=== PATIENT | male | born 1995 | race American Indian/Alaskan Native ===

== ENCOUNTER 2016-11-12 10:30 | Day surgery (SDC) | payer OTHER ==
[~2016-11-12 10:30] MED LIST: ANCEF/STERILE WATER 2 GM/20 ML 2 GM/20 ML SYRINGE IV NR
[2016-11-12] MEDS ORDERED: MARCAINE 0.5% 30 ML INFILTRATI ONE ×2 (13:02→14:33)
[2016-11-12] MEDS ORDERED: DECADRON ONE ×3 (13:03→15:18)
--- NOTE | 2016-11-12 13:09 | Anesthesia Day of Surgery ---
Anesthesia Day of Surgery - Day of Surgery Patient Examined: Yes Patient H&P Reviewed: Yes Patient is NPO: Yes Beta Blockers: No Pulmonary Clearance: No
--- NOTE | 2016-11-12 13:09 | Anesthesia Consultation ---
Anesthesia Consult and Med Hx - Airway ROM Head & Neck: Inadequate Mallampati Class: Class II Intubation Access Assessment: Possibly Difficult - Pulmonary Exam CTA: Yes - Cardiac Exam Cardiac Exam: RRR - Pre-Operative Health Status ASA Pre-Surgery Classification: ASA3 Proposed Anesthetic Plan: General (arthrograposis s/p multiple sx) - Central Nervous System Hx Psychiatric Problems: No - Other Systems Hx Alcohol Use: No Hx Substance Use: No Hx Cancer: No
[2016-11-12] MEDS ORDERED: SUBLIMAZE ONE (13:22)
[2016-11-12] MEDS ORDERED: XYLOCAINE 1% 20 mL ONE (13:23)
[2016-11-12] MEDS ORDERED: DILAUDID ONE (13:42)
[2016-11-12] MEDS ORDERED: DIPRIVAN 10 MG/ML IV ONE ×2 (13:42→15:49)
[2016-11-12] MEDS ORDERED: XYLOCAINE MPF 2% ONE (13:45)
[2016-11-12] MEDS ORDERED: ZOFRAN ONE ×2 (13:46→15:18)
[2016-11-12] MEDS ORDERED: PEPCID PO NR (14:00)
[2016-11-12] MEDS ORDERED: VERSED IV NR (14:00)
[2016-11-12] MEDS ORDERED: NACL 0.9% 1000 ML 1,000 ML IV SCH (14:00)
[2016-11-12] MEDS ORDERED: NEOSPORIN GU IR ONE ×2 (14:33→15:33)
[2016-11-12] MEDS ORDERED: VERSED ONE (15:01)
[2016-11-12] MEDS ORDERED: NACL 0.9% 1000 ML 1,000 ML ONE (15:21)
[2016-11-12] MEDS ORDERED: NACL 0.9% IR ONE (15:33)
[2016-11-12] MEDS ORDERED: MARCAINE 0.5% INFILTRATI ONE ×2 (15:33)
[2016-11-12] MEDS ORDERED: BREVIBLOC IV ONE (15:52)
[2016-11-12] MEDS ORDERED: PROAIR IH ONE (16:11)
--- NOTE | 2016-11-12 16:39 | Short Stay Summary ---
Short Stay Documentation Date of service: 11/12/16 - History H&P: obtained from office - Allergies and Medications Current Medications: Allergies No Known Allergies Allergy (Unverified 10/28/16 12:16) Home Medications Medication Instructions Recorded Confirmed Last Taken Type No Known Home Medications [No 10/28/16 10/28/16 Unknown History Reported Home Medications] Active Medications Famotidine (Pepcid) 20 mg PO PREOP NR Stop: 11/12/16 23:59 Last Admin: 11/12/16 13:22 Dose: 20 mg Cefazolin Sodium (Ancef/Sterile Water 2 Gm/20 Ml) 2 gm in 20 mls @ 80 mls/hr IV PREOP NR PRN Reason: Protocol Stop: 11/12/16 23:59 Sodium Chloride (Nacl 0.9% 1000 Ml) 1,000 mls @ 100 mls/hr IV DIRECT [place] Last Admin: 11/12/16 13:22 Dose: 100 mls/hr Midazolam HCl (Versed) 2 mg IV PREOP NR Stop: 11/12/16 23:59 Last Admin: 11/12/16 13:31 Dose: 2 mg - Brief post op/procedure progress note Date of procedure: 11/12/16 Pre-op diagnosis: Right foot deformity/Talipes equinovarus Post-op diagnosis: same Procedure: Triple arthrodesis Right Hind foot Anesthesia: regional Surgeon: MADHAV GARCIA Estimated blood loss: minimal - Disposition Condition at discharge: Stable Disposition: DISCHARGED TO HOME OR SELFCARE Short Stay Discharge Plan Follow up with: PRIMARY CARE, [Primary Care Provider] - 7 Days
[2016-11-12] MEDS ORDERED: DEMEROL ONE (17:00)
--- NOTE | 2016-11-12 17:02 | Post Anesthesia Evaluation ---
- Post Anesthesia Evaluation Patient Participated: Yes Airway Patent: Yes Stable Respiratory Function: Yes Nausea/Vomiting: No Temp > 96.8F: Yes Pain Manageable: Yes Adequeate Hydration: Yes Anesthesia Complications: No Block Receding Appropriately: Yes Patient on Ventilator: No
[2016-11-12] MEDS: DEMEROL IV PRN ×2 (17:05→17:06)
[2016-11-12 18:47] VITALS: BP 120/68
--- NOTE | 2016-11-13 15:28 | XRay Report ---
Right foot, 2 views in the OR. Findings: Arthrodesis has been performed in the tarsal region with a single orthopedic caroline traversing the proximal tarsal region.
--- NOTE | 2016-11-14 04:16 | Operative Report ---
PREOPERATIVE DIAGNOSES: Multiple foot deformity of the right, status post talipes equinovarus and congenital deformity. POSTOPERATIVE DIAGNOSES: Multiple foot deformity of the right, status post talipes equinovarus and congenital deformity. PROCEDURE: Triple arthrodesis, hind foot, tibiotalar joint exposure. SURGEON: Denise Pozo M.D. FIELD SUPERVISOR SEED PRODUCTION: Qing Otero RN ANESTHESIA: General. COMPLICATIONS: None. BRIEF HISTORY: The patient is a 21-year-old male who had multiple deformities and who has had multiple surgeries secondary to multiple congenital abnormalities. The patient having had a pantalar arthrodesis on the left ankle already. On the right, the patient has had surgical correction of the equinovarus foot, and the patient has had multiple surgical incisions above the foot. The patient complains of pain and instability when trying to ambulate. PROCEDURE IN DETAIL: Once the patient was in surgical room, a time-out was carried out to identify the patient and procedure, prepping and draping of the patient was done in usual fashion. The procedure was carried out by making an incision over one of the previous surgical scars of the foot. The incision was carried about the tip of the lateral malleolus and extended toward the dorsum of the foot. The dissection was carried out to the subcutaneous tissue without any problems with adequate exposure of the area. The pedis muscle was absent. Elevation over the periosteum was carried out exposing the undersurface of the area. 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 Exploration of the area demonstrated that the patient did have what appears to be a previous attempted fusion of the lateral column of the foot. Dissection was continued and the talus was dissected as was the calcaneus. The cleaning out of the ____ space in the area was done. Using ____ of the area was carried out. All the bone was preserved for future use and the procedure was continued by exposing of the different joints on the foot. The foot was corrected bringing the foot in the more abducted position and more ____. At this point, we decided to go ahead and fix the different joints and a staple was placed across the tibiotalar joint to hold in a neutral position. Following that multiple ____ graft was inserted in the subtalar joint and the joint between the calcaneus and the talus. Once this was done, the procedure was continued by the insertion of timothy to hold the area. Once all this in place, the hind foot was held in neutral position. The procedure was then terminated, wound irrigated, wound closed by closing the subcutaneous tissues and fascia and periosteum in the multiple layers, and the patient was placed in a short fiberglass splint, compression bandage on the foot. [facility]# [id number] ELIEL/GIOVANNA
== END 2016-11-12 18:35 | disposition home or self-care (01) ==
LOC: OR 10:30
DX: Q66.0 Congenital talipes equinovarus (principal); Q66.1 Congenital talipes calcaneovarus; F10.21 Alcohol dependence, in remission; Z98.890 Other specified postprocedural states
CPT/HCPCS: 28715; 64450; 73620; C1713; J0690; J1100; J1170; J2175; J2250; J2405; J2704; J3010; J7030